=== PATIENT | female | born 1945 | race Caucasian/White ===

== ENCOUNTER 2018-11-30 12:44 | Outpatient (CLI) | payer MEDICARE ==
[~2018-11-30 12:44] MED LIST: Gadobenate Dimeglumine 529 MG/1 ML (20ML VIAL) ONE
--- NOTE | 2018-11-30 16:50 | MRI ---
MRA Angio Brain wo STANDARD History: Vision changes Comparison: None Findings: 3-D [id number] imaging was performed of the [place]. The right vertebral artery is dominant. Basilar artery is patent. Slight decreased flow within the ri ght M2 and M3 segments on the right without definite stenosis identified. The right A1 segment is atretic, likely a congenital variant. Internal carotid arteries are patent. Impression: 1. 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 2. Slight decreased flow within the right M2 and M3 segments without a focal stenosis or thrombosis i dentified, likely artifactual. CT angiogram recommended as it has greater sensitivity for focal luminal narrowing.
--- NOTE | 2018-11-30 17:31 | MRI ---
MRI BRAIN AND ORBITS WITH AND WITHOUT CONTRAST: 11/30/18 HISTORY: 73-year-old female with ICD-10: H53.9, vision changes. Acute right eye pain and transient vision loss in right eye. TECHNIQUE: Multiplanar, multisequence MRI of the brain and orbits obtained pre and post IV injection of 14 mL of Multihance gadolinium based contrast agent. FINDINGS: Orbital sequences, especially postcontrast T1 weighted coronal sequence, is degraded by patient motio n. No definite abnormal signal, abnormal enhancement, or mass involving the bilateral orbits, globes, optic nerves, or orbital apices. No evidence of recent or remote intra-axial hemorrhage. Mild to mod erate chronic ischemic white matter changes in the periventricular white matter, and deep cerebral wh ite matter. Ventricles are normal in size and configuration. No mass effect, midline shift, or extra- axial fluid collection. Extra-ocular muscles are bilaterally symmetrical and normal in size. No restr icted diffusion to indicate any acute cerebral infarction. Cavernous sinuses are normal. No suprasell ar mass. No impingement on optic chiasm. IMPRESSION: 1. Mild to moderate chronic ischemic white matter changes due to microvascular atherosclerosis. 2. Otherwise negative. POS: CET
== END 2018-11-30 12:45 | disposition home or self-care (01) ==
LOC: SCSMRI 12:44
PROVIDERS: ATTEND Psychiatry & Neurology Neurology
DX: H53.121 Transient visual loss, right eye (principal); H57.10 Ocular pain, unspecified eye; H53.9 Unspecified visual disturbance; I67.2 Cerebral atherosclerosis
CPT/HCPCS: 70544; 70553; A9577

== ENCOUNTER 2020-02-10 10:31 | Outpatient (CLI) | payer MEDICARE ==
--- NOTE | 2020-02-10 10:58 | RAD ---
RADIOGRAPH CHEST 2 VIEWS: DATE: 02/10/2020 HISTORY: 74-year-old female with dyspnea. FINDINGS: There is no air space density, pulmonary edema, pleural effusion, pneumothorax, or cardiomegaly. IMPRESSION: No acute cardiopulmonary findings. jn [] POS: JIN
== END 2020-02-10 10:32 | disposition home or self-care (01) ==
LOC: SCSRAD 10:31
PROVIDERS: ATTEND Family Medicine
DX: R06.00 Dyspnea, unspecified (principal)
CPT/HCPCS: 71046

== ENCOUNTER 2021-02-06 14:47 | Outpatient (CLI) | payer MEDICARE ==
[2021-02-06 15:46] LABS: Hemoglobin 11.6 g/dL (12.0-15.5); Mean Corpuscular Hemoglobin 29.1 pg (27.0-33.0); Mean Platelet Volume 10.6 fl (7.4-10.4); Platelet Count 214 10x3/uL (150-450); Red Blood Cell (RBC) Count 3.99 10x6/uL (3.90-5.03); White Blood Cell (WBC) Count 7.9 10x3/uL (3.5-10.5)
[2021-02-06 16:14] LABS: Anion Gap 16 mmol/L (10-20); BUN (Urea Nitrogen) 17 mg/dL (9.8-20.1); Calc. Creatinine Clearance 0 mL/min (70-130); Calcium 10.4 mg/dL (7.8-10.44); Carbon Dioxide 28 mmol/L (23-31); Chloride 102 mmol/L (98-107); Glucose 100 mg/dL (83-110); Potassium 3.3 mmol/L (3.5-5.1)
[2021-02-06 16:20] LABS: Sodium 143 mmol/L (136-145)
[2021-02-07 02:16] LABS: SARS-CoV-2 PCR by NAA Not Detected (NotDetected)
== END 2021-02-06 14:48 | disposition home or self-care (01) ==
LOC: LABBT 14:47
PROVIDERS: ATTEND Neurological Surgery
DX: Z01.818 Encounter for other preprocedural examination (principal); M48.062 Spinal stenosis, lumbar region with neurogenic claudication; Z20.822 Contact with and (suspected) exposure to COVID-19
CPT/HCPCS: 80048; 85027; U0003; U0005; 93005; 93010

== ENCOUNTER 2021-02-11 07:45 | Observation (INO) | payer MEDICARE ==
[2021-02-11] MEDS ORDERED: ceFAZolin 2 GM/DEX 5% 100 ML BAG ONE (08:04)
[2021-02-11] MEDS ORDERED: Glycopyrrolate 0.2 MG/ML 5 ML SYRINGE ONE (11:43)
[2021-02-11] MEDS ORDERED: Fentanyl 100 MCG/2 ML VIAL ONE ×4 (11:43→15:48)
[2021-02-11] MEDS ORDERED: ePHEDrine 50 MG/ML VIAL ONE (11:43)
[2021-02-11] MEDS ORDERED: PROPOFOL 200 MG/20 ML VIAL ONE (11:43)
[2021-02-11] MEDS ORDERED: Rocuronium Bromide 10 MG/ML (10ML VIAL) ONE (11:43)
[2021-02-11] MEDS ORDERED: Dexamethasone 20 MG/5 ML VIAL ONE (11:43)
[2021-02-11] MEDS ORDERED: Ondansetron PF 4 MG/2 ML Vial ONE ×2 (11:43→15:09)
[2021-02-11] MEDS ORDERED: Lidocaine 1% PF 5 ML VIAL ONE (11:43)
[2021-02-11] MEDS ORDERED: Promethazine HCl 25 MG/ML VIAL IVPB PRN (13:16)
[2021-02-11] MEDS ORDERED: Ondansetron HCl/PF 4 MG/2 ML Vial IVP PRN (13:16)
[2021-02-11] MEDS ORDERED: HYDROmorphone 2 MG/ML VIAL SLOW IVP PRN (13:16)
[2021-02-11] MEDS ORDERED: Promethazine HCl 25 MG/ML VIAL IM PRN ×2 (13:16→13:30)
[2021-02-11] MEDS ORDERED: Ondansetron PF 4 MG/2 ML Vial IM PRN (13:29)
[2021-02-11] MEDS ORDERED: diphenhydrAMINE 50 MG/ML VIAL IVP PRN (13:30)
[2021-02-11] MEDS ORDERED: tiZANidine HCl 4 MG TAB PO PRN (13:30)
[2021-02-11] MEDS ORDERED: Morphine 2 MG/ML VIAL SLOW IVP PRN (13:30)
[2021-02-11] MEDS ORDERED: Promethazine HCl 12.5 MG SUPP PR PRN (13:30)
[2021-02-11] MEDS ORDERED: Mag-Al 1200 mg/1200 mg/30 ML UDCUP PO PRN (13:30)
[2021-02-11] MEDS ORDERED: HYDROcodone/Acetaminophen 7.5/325 mg Tablet PO PRN ×2 (13:30)
[2021-02-11] MEDS ORDERED: Promethazine 25 MG TAB PO PRN (13:30)
[2021-02-11] MEDS ORDERED: traMADol HCl 50 MG TAB PO PRN ×2 (13:30)
[2021-02-11] MEDS ORDERED: Morphine 4 MG/ML VIAL SLOW IVP PRN (13:30)
[2021-02-11] MEDS ORDERED: diphenhydrAMINE 25 MG CAP PO PRN (13:30)
[2021-02-11] MEDS ORDERED: Milk Of Magnesia 30 ML UDCUP PO PRN (13:30)
[2021-02-11] MEDS ORDERED: HYDROmorphone 0.5 MG/0.5 ML SYRINGE ONE (14:41)
[2021-02-11] MEDS ORDERED: hydrALAZINE 20 MG/ML VIAL ONE (15:29)
[2021-02-11] MEDS ORDERED: Promethazine HCl 25 MG/ML VIAL ONE (15:33)
[2021-02-11] MEDS ORDERED: CEFAZOLIN 2 GM in Premix Bag 1 BAG IVPB SCH (16:00)
[2021-02-11] MEDS ORDERED: Morphine 4 MG/ML VIAL ONE (16:07)
[2021-02-11] MEDS: Ketorolac Tromethamine 30 MG/ML VIAL IVP SCH (17:35)
[2021-02-11] MEDS: Sodium Chloride 0.9% 1,000 ML IV SCH (17:35)
[2021-02-11 19:33] VITALS: BMI 29.0
[2021-02-11] MEDS: ceFAZolin Sodium/D5W 2 GM in Premix Bag 1 BAG IVPB SCH (19:43)
[2021-02-11] MEDS ORDERED: FLU VACC QS2021-22(65YR UP)/PF 240 MCG/0.7 ML SYRINGE IM ONE (20:00)
[2021-02-11] MEDS: Potassium Chloride 20 MEQ TAB PO SCH (20:08)
[2021-02-12] MEDS: Ketorolac Tromethamine 30 MG/ML VIAL IVP SCH ×3 (00:12→13:14)
[2021-02-12] MEDS: Sodium Chloride 0.9% 1,000 ML IV SCH (02:30)
[2021-02-12] MEDS: ceFAZolin Sodium/D5W 2 GM in Premix Bag 1 BAG IVPB SCH (04:20)
[2021-02-12] MEDS ORDERED: Calcium Carbonate 600 MG + Vit D TAB PO SCH (09:00)
[2021-02-12] MEDS ORDERED: Ascorbic Acid 500 mg Chewable Tablet PO SCH (09:00)
[2021-02-12] MEDS ORDERED: Cyanocobalamin (Vitamin B-12) 1,000 MCG TAB PO SCH (09:00)
[2021-02-12] MEDS ORDERED: Vit A,C & E/Lutein/Minerals Tablet PO SCH (09:00)
[2021-02-12] MEDS ORDERED: Hydrochlorothiazide 25 MG TAB PO SCH (09:00)
[2021-02-12] MEDS ORDERED: Atenolol 50 MG TAB PO SCH (09:00)
[2021-02-12] MEDS: Potassium Chloride 20 MEQ TAB PO SCH ×2 (09:05→14:57)
[2021-02-12] MEDS: Furosemide 20 MG TAB PO SCH ×2 (09:07→13:14)
[2021-02-12 12:27] VITALS: BP 151/67; TEMP 97.3
== END 2021-02-12 16:38 | disposition home or self-care (01) ==
LOC: SDC 07:45 → ONC 13:21
PROVIDERS: ADMIT Neurological Surgery; ATTEND Neurological Surgery
PROC: 0SG0071 Fusion of Lumbar Vertebral Joint with Autologous Tissue Substitute, Posterior Approach, Posterior Column, Open Approach (ICD-10-PCS; principal; 2021-02-11)
DX: M51.16 Intervertebral disc disorders with radiculopathy, lumbar region (principal); M48.062 Spinal stenosis, lumbar region with neurogenic claudication; I10 Essential (primary) hypertension; M19.90 Unspecified osteoarthritis, unspecified site; E78.5 Hyperlipidemia, unspecified; G43.909 Migraine, unspecified, not intractable, without status migrainosus; G47.30 Sleep apnea, unspecified; D53.9 Nutritional anemia, unspecified; R33.9 Retention of urine, unspecified; Z23 Encounter for immunization; Z86.73 Personal history of transient ischemic attack (TIA), and cerebral infarction without residual deficits; Z79.82 Long term (current) use of aspirin; Z79.899 Other long term (current) drug therapy
CPT/HCPCS: 20930; 20936; 22612; 22840; 76000; 90662; 97110; 97116; 97139; C1713; C1768; G0008; 90471; 96365; 96372; 96375; 96376; G0378; J0360; J1100; J1170; J1885; J2270; J2405; J2550; J2704; J3010; J3370; J3490; J7050

== ENCOUNTER 2021-02-28 12:30 | Outpatient (CLI) | payer MEDICARE | END 2021-02-28 12:31 | disposition home or self-care (01) | LOC: TBSIIMAG 12:30 | PROVIDERS: ATTEND Neurological Surgery | DX: M48.062 Spinal stenosis, lumbar region with neurogenic claudication (principal); Z98.890 Other specified postprocedural states | CPT/HCPCS: 72100 ==